=== PATIENT | female | born 1960 | race Caucasian/White ===

== ENCOUNTER 2018-04-05 12:57 | Emergency (ER) | payer MEDICARE, OTHER ==
[2018-04-05] MEDS ORDERED: NA CHLORIDE 0.9% 1,000 ML ONE (14:49)
[2018-04-05] MEDS ORDERED: LORazepam 2 MG/ML VIAL ONE (14:49)
[2018-04-05] MEDS ORDERED: ONDANSETRON 4 MG/2 ML VIAL ONE (14:49)
[2018-04-05 15:09] LABS: Absolute Monocytes 1.6 K/uL (0.1-1.3); Eosinophils % 0.3 % (0-4.4); Hematocrit 43.9 % (36.0-45.0); MPV 8.6 fL (7.6-11.3); Monocytes % 10.1 % (3.3-12.3); RBC Red Blood Cell Count 4.76 M/uL (3.86-4.86)
[2018-04-05 15:25] LABS: Albumin 4.2 g/dL (3.4-5.0); Bilirubin Direct 0.2 mg/dL (0-0.2); Bilirubin Total 0.5 mg/dL (0.2-1.0); Potassium 4.1 mmol/L (3.5-5.1); Protein, Total 8.8 g/dL (6.4-8.2)
--- NOTE | 2018-04-05 16:24 | RAD REPORT ---
EXAM DESCRIPTION: CT - Abdomen Pelvis Wo Contrast - 04/05/2018 3:53 pm CLINICAL HISTORY: Abdominal pain vomiting COMPARISON: 2007 TECHNIQUE: Computed axial tomography of the abdomen and pelvis was obtained. IV and oral contrast we re not requested. All CT scans are performed using dose optimization technique as appropriate and may include automated exposure control or mA/KV adjustment according to patient size. FINDINGS: The evaluation of solid organs, vessels and bowel is limited secondary to the lack of con trast administration. The liver, spleen, pancreas, adrenals and kidneys appear grossly normal. The appendix is normal. There is no evidence of diverticulitis. An adnexal mass is not noted A small hiatal hernia IMPRESSION: No acute abnormality is displayed.
--- NOTE | 2018-04-05 16:39 | EDPHYS ---
Physician Documentation [facility] Name: Tamanna Salgado Age: 57 yrs Sex: Female : 1960 Arrival Date: 04/05/2018 Time: 13:03 Bed 16 Private MD: Vidhi Mccray H ED Physician Steve Vasquez HPI: 04/05 13:58 This 57 yrs old Female presents to ER via Ambulatory with complaints of jmm Vomiting, Abdominal Pain, Medication Refill, body aches. 13:58 The patient presents to the emergency department with nausea, vomiting, abdominal pain. jmm Onset: The symptoms/episode began/occurred gradually, 2 day(s) ago. Possible causes: bad food exposure, chicken. The symptoms are aggravated by nothing. The symptoms are alleviated by nothing. This is a 57 year old female with a history of bipolar disorder, seizures that presents to the ED with complaints of abdominal pain, body aches, vomiting beginning this past after eating chicken. Patient denies diarrhea. Patient states today she has been able to tolerate fluids. . Historical: - Allergies: 13:18 PENICILLINS; sg - Home Meds: 13:55 alprazolam 2 mg Oral tab 1 tab BID [Active]; Xanax Oral [Active]; rb1 - PMHx: 13:18 Bipolar disorder; Pneumonia; Seizures; sg - PSHx: 13:18 Knee surgery; ; sg - Immunization history:: Adult Immunizations up to date. - Social history:: Smoking status: Patient/guardian denies using tobacco. - Ebola Screening: : Patient negative for fever greater than or equal to 101.5 degrees Fahrenheit, and additional compatible Ebola Virus Disease symptoms Patient denies exposure to infectious person Patient denies travel to an Ebola-affected area in the 21 days before illness onset No symptoms or risks identified at this time. ROS: 13:58 Cardiovascular: Negative for chest pain, palpitations, and edema, Respiratory: Negative jmm for shortness of breath, cough, wheezing, and pleuritic chest pain. 13:58 Constitutional: Positive for body aches. 13:58 Abdomen/GI: Positive for abdominal pain, nausea and vomiting. 13:58 All other systems are negative. Exam: 13:58 Head/Face: atraumatic. jmm 13:58 Eyes: EOMI, no conjunctival erythema appreciated ENT: Moist Mucus Membranes Neck: Trachea midline, Supple Chest/axilla: Normal chest wall appearance and motion. Cardiovascular: Regular rate and rhythm. No edema appreciated Respiratory: Normal respirations, no respiratory distress appreciated 13:58 Constitutional: The patient appears alert, awake, anxious. 13:58 Abdomen/GI: Inspection: abdomen appears normal, Bowel sounds: normal, Palpation: soft, moderate abdominal tenderness, in all quadrants. 13:58 Back: ROM is normal. 13:58 Musculoskeletal/extremity: ROM: intact in all extremities. 13:58 Skin: Appearance: Color: normal in color. 13:58 Neuro: Orientation: is normal, Mentation: is normal, Memory: is normal. 13:58 Psych: Behavior/mood is pleasant, cooperative, anxious. Vital Signs: 13:23 BP 119 / 81; Pulse 80; Resp 18 S; Temp 97.8; Pulse Ox 100% ; Weight 81.65 kg; Height 5 sg ft. 8 in. (172.72 cm); Pain 10/10; 14:23 BP 124 / 80; Pulse 72; Resp 17; Pulse Ox 100% on R/A; rb1 15:23 BP 111 / 67; Pulse 74; Resp 16; Pulse Ox 100% ; Pain 6/10; rb1 16:20 BP 120 / 77; Pulse 85; Resp 17; Pulse Ox 100% on R/A; Pain 3/10; rb1 17:10 BP 120 / 77; Pulse 85; Resp 18; Pulse Ox 100% on R/A; rb1 13:23 Body Mass Index 27.37 (81.65 kg, 172.72 cm) sg MDM: 13:58 Patient medically screened. [facility] 16:37 Data reviewed: vital signs, nurses notes. Counseling: I had a detailed discussion with scott the patient and/or guardian regarding: the historical points, exam findings, and any diagnostic results supporting the discharge/admit diagnosis, lab results, radiology results, the need for outpatient follow up, to return to the emergency department if symptoms worsen or persist or if there are any questions or concerns that arise at home. Refusal of service: The patient/guardian displays adequate decision making capability and despite a detailed discussion of alternatives, benefits, risks, and consequences refuses: Admission to the hospital for further work-up and treatment. ED course: Labs were discussed with the patient concerning of keshav. Patient advised of the need for IVF. Patient refused admission. Given strict return precautions. Patient understood. . 04/05 14:17 Order name: Basic Metabolic Panel; Complete Time: 15:27 [facility] 04/05 14:17 Order name: CBC with Diff; Complete Time: 15:25 [facility] 04/05 14:17 Order name: Creatinine for Radiology; Complete Time: 15:25 [facility] 04/05 14:17 Order name: Hepatic Function; Complete Time: 15:27 [facility] 04/05 14:17 Order name: Lipase; Complete Time: 15:27 [facility] 04/05 15:45 Order name: Troponin (emerg Dept Use Only) [facility] 04/05 14:17 Order name: IV Saline Lock; Complete Time: 15: [facility] 04/05 14:17 Order name: Labs collected and sent; Complete Time: 15: [facility] 04/05 15:33 Order name: Abdomen ; Complete Time: 16:28 EDMS Administered Medications: 15:00 Drug: Ativan 0.5 mg Route: IVP; Site: left antecubital; rb1 15:15 Follow up: Response: No adverse reaction; Anxiety decreased rb1 15:00 Drug: Zofran 4 mg Route: IVP; Site: left antecubital; rb1 15:15 Follow up: Response: No adverse reaction; Nausea is decreased rb1 15:00 Drug: NS 0.9% 1000 ml Route: IV; Rate: 1 bolus; Site: left antecubital; rb1 16:08 Follow up: IV Status: Completed infusion rb1 Disposition: 04/06 08:00 Co-signature as Attending Physician, Steve Vasquez MD I agree with the assessment and shaggy plan of care. Disposition: 04/05/18 16:38 Discharged to Home. Impression: Vomiting, Dehydration, Acute Kidney Injury, Generalized abdominal pain. - Condition is Stable. - Discharge Instructions: Dehydration, Adult, Nausea and Vomiting, Adult. - Prescriptions for Zofran ODT 4 mg Oral tablet,disintegrating - place 1 tablet by TRANSLINGUAL route every 4-6 hours; 20 tablet. Tylenol- Codeine #4 300-60 mg Oral Tablet - take 1 tablet by ORAL route every 6 hours As needed; 6 tablet. Xanax 1 mg Oral Tablet - take 1 tablet by ORAL route every 8 hours As needed; 6 tablet. - Medication Reconciliation Form, Thank You Letter, Antibiotic Education, Prescription Opioid Use, Work release form form. - Follow up: Vidhi Mccray DO; When: Tomorrow; Reason: Recheck today's complaints, Continuance of care, Re-evaluation by your physician. Signatures: Dispatcher [employer] [facility] Peter Botello RN RN Steve Rodriguez MD MD cha Mickail, Joel, PA PA [facility] Jennifer Esteban, RN RN rb1 Corrections: (The following items were deleted from the chart) 04/05 15:33 14:28 Abdomen Pelvis W Con+CT.RAD.BRZ ordered. [facility] 16:40 16:38 04/05/2018 16:38 Discharged to Home. Impression: Vomiting; Dehydration; Acute [facility] Kidney Injury. Condition is Stable. Forms are Work release form, Medication Reconciliation Form, Thank You Letter, Antibiotic Education, Prescription Opioid Use. Follow up: Vidhi Mccray; When: Tomorrow; Reason: Recheck today's complaints, Continuance of care, Re-evaluation by your physician. [facility] 17:21 16:40 04/05/2018 16:38 Discharged to Home. Impression: Vomiting; Dehydration; Acute rb1 Kidney Injury; Generalized abdominal pain. Condition is Stable. Discharge Instructions: Dehydration, Adult, Nausea and Vomiting, Adult. Prescriptions for Zofran ODT 4 mg Oral tablet,disintegrating - place 1 tablet by TRANSLINGUAL route every 4-6 hours; 20 tablet, Tylenol-Codeine #4 300-60 mg Oral Tablet - take 1 tablet by ORAL route every 6 hours As needed; 6 tablet, Xanax 1 mg Oral Tablet - take 1 tablet by ORAL route every 8 hours As needed; 6 tablet. and Forms are Work release form, Medication Reconciliation Form, Thank You Letter, Antibiotic Education, Prescription Opioid Use. Follow up: Emma-Stepan Mccray; When: Tomorrow; Reason: Recheck today's complaints, Continuance of care, Re-evaluation by your physician. [facility]
--- NOTE | 2018-04-05 16:39 | ER ---
Nurse's Notes [facility] Name: Tamanna Salgado Age: 57 yrs Sex: Female : 1960 Arrival Date: 04/05/2018 Time: 13:03 Bed 16 Private MD: Vidhi Mccray H Diagnosis: Vomiting;Dehydration;Acute Kidney Injury;Generalized abdominal pain Presentation: 04/05 13:22 Presenting complaint: Patient states: Was eating fried chicken and the bone feels like sg its stuck in my stomach, Quyen been vomiting and unable to keep any water down, Quyen just not been feeling very well, I also need a letter that says I can go back to work. Denies N/F/D, reports vomiting. Transition of care: patient was not received from another setting of care. Onset of symptoms was April 05, 2018. Risk Assessment: Do you want to hurt yourself or someone else? Patient reports no desire to harm self or others. Initial Sepsis Screen: Does the patient meet any 2 criteria? No. Patient's initial sepsis screen is negative. Does the patient have a suspected source of infection? No. Patient's initial sepsis screen is negative. Care prior to arrival: None. 13:22 Method Of Arrival: Ambulatory sg 13:22 Acuity: DILSHAD 3 sg Historical: - Allergies: 13:18 PENICILLINS; sg - Home Meds: 13:55 alprazolam 2 mg Oral tab 1 tab BID [Active]; Xanax Oral [Active]; rb1 - PMHx: 13:18 Bipolar disorder; Pneumonia; Seizures; sg - PSHx: 13:18 Knee surgery; ; sg - Immunization history:: Adult Immunizations up to date. - Social history:: Smoking status: Patient/guardian denies using tobacco. - Ebola Screening: : Patient negative for fever greater than or equal to 101.5 degrees Fahrenheit, and additional compatible Ebola Virus Disease symptoms Patient denies exposure to infectious person Patient denies travel to an Ebola-affected area in the 21 days before illness onset No symptoms or risks identified at this time. Screenin:55 Abuse screen: Denies threats or abuse. Nutritional screening: Has had N/V for 3 or more rb1 days. Tuberculosis screening: No symptoms or risk factors identified. Fall Risk None identified. Assessment: 13:55 General: Appears distressed, Behavior is anxious, Reports feeling ill for . rb1 Denies fever. Pain: Complains of pain in abdomen Pain currently is 7 out of 10 on a pain scale. Pain began . Neuro: Level of Consciousness is awake, alert, obeys commands, Oriented to person, place, time, situation. Cardiovascular: Capillary refill < 3 seconds is brisk in bilateral fingers. Respiratory: Airway is patent Respiratory effort is even, unlabored, Respiratory pattern is regular, symmetrical. GI: Abdomen is flat, Reports nausea, vomiting, since . : No signs and/or symptoms were reported regarding the genitourinary system. Derm: Skin is pink, warm \T\ dry. Musculoskeletal: Range of motion: intact in all extremities. 14:55 Reassessment: Patient appears in no apparent distress at this time. Pt. is less rb1 anxious. Patient states feeling better. 15:55 Reassessment: Patient appears in no apparent distress at this time. Patient and/or rb1 family updated on plan of care and expected duration. Pain level reassessed. Patient is alert, oriented x 3, equal unlabored respirations, skin warm/dry/pink. Pt. returned from CT. 16:55 Reassessment: Patient appears in no apparent distress at this time. No changes from rb1 previously documented assessment. Mother at bedside. Vital Signs: 13:23 BP 119 / 81; Pulse 80; Resp 18 S; Temp 97.8; Pulse Ox 100% ; Weight 81.65 kg; Height 5 sg ft. 8 in. (172.72 cm); Pain 10/10; 14:23 BP 124 / 80; Pulse 72; Resp 17; Pulse Ox 100% on R/A; rb1 15:23 BP 111 / 67; Pulse 74; Resp 16; Pulse Ox 100% ; Pain 6/10; rb1 16:20 BP 120 / 77; Pulse 85; Resp 17; Pulse Ox 100% on R/A; Pain 3/10; rb1 17:10 BP 120 / 77; Pulse 85; Resp 18; Pulse Ox 100% on R/A; rb1 13:23 Body Mass Index 27.37 (81.65 kg, 172.72 cm) ED Course: 13:03 Patient arrived in ED. mr 13:04 Vidhi Mccray DO is Private Physician. mr 13:19 Arm band placed on. sg 13:23 Triage completed. sg 13:55 Patient has correct armband on for positive identification. Call light in reach. Side rb1 rails up X 1. Pulse ox on. NIBP on. 13:57 Sherwin Chacon PA is PHCP. jmm 13:57 Steve Vasquez MD is Attending Physician. m 14:12 Jennifer Esteban, RN is Primary Nurse. rb1 14:41 Radiology exam delayed due to lab results not completed at this time. (BUN/Creatinine) kw1 IV insertion attempt and/or patient not having appropriate IV at this time. 15:00 Inserted saline lock: 22 gauge in left antecubital area, using aseptic technique. Blood rb1 collected. 15:53 Abdomen In Process Unspecified. EDMS 15:55 CT completed. Patient tolerated procedure well. Patient moved back from CT. mw3 16:38 Vidhi Mccray DO is Referral Physician. jmm 17:10 No provider procedures requiring assistance completed. IV discontinued, intact, rb1 bleeding controlled, No redness/swelling at site. Pressure dressing applied. Administered Medications: 15:00 Drug: Ativan 0.5 mg Route: IVP; Site: left antecubital; rb1 15:15 Follow up: Response: No adverse reaction; Anxiety decreased rb1 15:00 Drug: Zofran 4 mg Route: IVP; Site: left antecubital; rb1 15:15 Follow up: Response: No adverse reaction; Nausea is decreased rb1 15:00 Drug: NS 0.9% 1000 ml Route: IV; Rate: 1 bolus; Site: left antecubital; rb1 16:08 Follow up: IV Status: Completed infusion rb1 Outcome: 16:38 Discharge ordered by MD. jmm 17:10 Patient left the ED. rb1 17:10 Discharged to home ambulatory, with family. rb1 17:10 Condition: stable 17:10 Discharge instructions given to patient, Instructed on discharge instructions, follow up and referral plans. medication usage, Demonstrated understanding of instructions, follow-up care, medications, Prescriptions given X 3. Signatures: Dispatcher [employer] EDMS Peter Botello RN RN Sherwin Chacon PA PA [facility] ZhouUna mr Jennifer Esteban, LEO RN rb1 Denisse Marsh kw1 Armstrong, Mery mw3 Corrections: (The following items were deleted from the chart) 16:03 14:55 Reassessment: Patient appears in no apparent distress at this time. Patient rb1 states feeling better. rb1 16:08 15:23 BP 111 / 67; Pulse 74bpm; Resp 16bpm; Pulse Ox 100%; rb1 rb1 17:22 17:21 Patient left the ED. rb1 rb1
[2018-04-05 17:33] VITALS: TEMP 97.8; O2SAT 100
[2018-04-05 17:38] VITALS: BP 120/77
== END 2018-04-05 17:21 | disposition home or self-care (01) ==
LOC: ER 12:57
DX: R11.2 Nausea with vomiting, unspecified (principal); E86.0 Dehydration; N17.9 Acute kidney failure, unspecified; R10.9 Unspecified abdominal pain; F31.9 Bipolar disorder, unspecified; Z88.0 Allergy status to penicillin
CPT/HCPCS: 36415; 74176; 80048; 80076; 83690; 84484; 85025; 96361; 96374; 96375; 99284; J2405; J7030